=== PATIENT | male | born 1995 ===

== ENCOUNTER 2023-01-31 19:10 | Emergency (ER) | payer OTHER ==
[2023-01-31] MEDS ORDERED: Diphtheria,Pertussis(Acell),Tetanus Vaccine 0.5 ML Syringe IM ONE (20:09)
[2023-01-31] MEDS ORDERED: Bacitracin Oint 1 GM U/D Packet TOP STA (20:17)
== END 2023-01-31 20:31 | disposition home or self-care (01) ==
LOC: MW.ED 19:10
DX: T24.221A Burn of second degree of right knee, initial encounter (principal); H66.91 Otitis media, unspecified, right ear; Z88.8 Allergy status to other drugs, medicaments and biological substances; Z23 Encounter for immunization
CPT/HCPCS: 90471; 90715; 99283; 99283-25